=== PATIENT | female | born 1985 | race Hispanic/Latino ===

== ENCOUNTER 2019-05-20 07:21 | Emergency (ER) | payer SELFPAY ==
[2019-05-20 08:00] LABS: #Basophils 0.1 thou/uL (0.0-0.2); #Eosinphils 0.1 thou/uL (0.0-0.7); #Lymphocytes 2.8 thou/uL (1.20-3.40); #Monocytes 0.5 thou/uL (0.11-0.59); #Neutrophils 5.3 thou/uL (1.40-6.50); %Basophils 1.1 % (0.0-1.0); %Eosinophils 1.1 % (0.0-10.0); %Lymphocytes 31.9 % (21.0-51.0); %Monocytes 5.9 % (0.0-10.0); %Neutrophils 60.1 % (42.0-75.0); Hemoglobin 14.8 g/dL (12.0-16.0); Mean Corpuscular HGB CONC 35.2 g/dL (32.0-36.0); Mean Corpuscular Hemoglobin 31.8 pg (27.0-31.0); Mean Corpuscular Volume 90.4 fL (78.0-98.0); Mean Platelet Volume 6.8 fL (7.4-10.4); Platelet Count 299 thou/uL (130-400); RBC Distribution Width 11.8 % (11.5-14.5); Red Blood Cell (RBC) Count 4.64 mill/uL (4.20-5.40); White Blood Cell (WBC) Count 8.8 thou/uL (4.8-10.8)
[2019-05-20 08:12] LABS: Anion Gap 11 mmol/L (10-20); BUN (Urea Nitrogen) 8 mg/dL (7.0-18.7); Calc. Creatinine Clearance 0 mL/min (70-130); Calcium 8.9 mg/dL (7.8-10.44); Carbon Dioxide 20 mmol/L (22-29); Chloride 108 mmol/L (98-107); Estimated GFR-MDRD Greater than 90; Glucose 100 mg/dL (70-105); Potassium 3.7 mmol/L (3.5-5.1); Sodium 135 mmol/L (136-145)
--- NOTE | 2019-05-20 09:01 | ULT ---
ULTRASOUND OB LIMITED: HISTORY: . Vaginal spotting. COMPARISON: None. FINDINGS: Real-time, hernández scale, color Doppler, and spectral analysis of the pelvis was performed by transabdom inal approach. Single viable intrauterine with heart rate documented at 157 b.p.m. The placenta is posterior and the tip of the inferior margin of the placenta is at the level of the i nternal os. The right adnexa is not well visualized. The left ovary has adequate vascular flow with a 2.7 cm cys t. The cervix is closed and measures 3.5 cm in length. BIOMETRY: Biparietal diameter 2.52 cm, 14 weeks 2 days Head circumference 9.53 cm, 14 weeks 2 days Abdominal circumference 8.37 cm, 14 weeks 5 days Femur length 1.43 cm, 14 weeks 2 days IMPRESSION: Normal single viable intrauterine . Continued followup is recommended. POS: HOME
== END 2019-05-20 08:40 | disposition home or self-care (01) ==
LOC: ERS 07:21
DX: O20.0 Threatened abortion (principal); Z3A.14 14 weeks gestation of pregnancy
CPT/HCPCS: 36415; 76815; 80048; 84702; 85025; 86900; 86901